=== PATIENT | male | born 1975 | race Caucasian/White ===

== ENCOUNTER → 2017-03-18 | Outpatient (CLI) | payer MEDICAID ==
[~2017-03-18] MED LIST: OMNIPAQUE 350 MG/ML, 150 ML BOTTLE ONE
== END | disposition home or self-care (01) ==
LOC: CFH 11:49
PROVIDERS: ATTEND Specialist
DX: C82.91 Follicular lymphoma, unspecified, lymph nodes of head, face, and neck (principal); I31.3 Pericardial effusion (noninflammatory); N28.1 Cyst of kidney, acquired
CPT/HCPCS: 70491; 71260; 74177; Q9967

== ENCOUNTER → 2018-02-08 | Outpatient (CLI) | payer MEDICAID | END | disposition home or self-care (01) | LOC: PETCFH 08:48 | PROVIDERS: ATTEND Specialist | DX: N28.1 Cyst of kidney, acquired (principal); C82.90 Follicular lymphoma, unspecified, unspecified site; I31.3 Pericardial effusion (noninflammatory); I51.7 Cardiomegaly | CPT/HCPCS: 78815; A9552 ==